=== PATIENT | female | born 1975 | race Two or more races ===

== ENCOUNTER 2019-07-21 12:03 | Emergency (ER) | payer MEDICAID ==
[~2019-07-21] VITALS: Ht 175.3 cm; Wt 158.6 kg
[2019-07-21 12:33] VITALS: Ht 175.3 cm; Wt 158.6 kg
[2019-07-21] MEDS ORDERED: EPIPEN 2-P0.3 MG/0.3 IM (12:48)
[2019-07-21 13:36] VITALS: BP 142/78
== END 2019-07-21 13:37 | disposition home or self-care (01) ==
LOC: D.ER 12:03
DX: T78.1XXA Other adverse food reactions, not elsewhere classified, initial encounter (principal); R06.2 Wheezing; E11.9 Type 2 diabetes mellitus without complications; I10 Essential (primary) hypertension; Z72.0 Tobacco use